=== PATIENT | male | born 1970 ===

== ENCOUNTER 2016-07-14 09:56 | Emergency (ER) | payer MEDICAID ==
[2016-07-14] MEDS ORDERED: ASPIRIN 81 MG CHEWABLE CTB PO ONE (10:03)
[2016-07-14] MEDS ORDERED: ASPIRIN 81 MG CHEWABLE CTB ONE (10:04)
[2016-07-14 10:08] VITALS: TEMP 97.9
[2016-07-14 10:35] LABS: HEMATOCRIT 46 % (39-53); MEAN CORPUSCULAR VOLUME 82 fL (80-100)
[2016-07-14 10:47] LABS: LYMPHOCYTES % (MANUAL) 13 % (10-50)
[2016-07-14 10:48] LABS: BASOPHILS % (MANUAL) 0 % (0-3); EOSINOPHILS % (MANUAL) 0 % (0-9); NORMAL RBCS PRESENT
[2016-07-14 10:49] LABS: ALBUMIN 3.5 gm/dl (3.4-5.0); ALT 54 IU/L (14-63); CALCIUM 8.7 mg/dl (8.5-10.1); GLOM FILT RATE 125 mL/min (>60); POTASSIUM 3.7 mMol/L (3.5-5.1); SODIUM 137 mMol/L (136-145)
[2016-07-14] MEDS ORDERED: ALBUTEROL/IPRATROPIUM 1 VIAL SOL INH ONE (11:41)
[2016-07-14] MEDS ORDERED: ALBUTEROL/IPRATROPIUM 1 VIAL SOL ONE (11:42)
[2016-07-14 11:45] VITALS: PULSE 100
[2016-07-14 12:22] VITALS: BP 109/73; RESP 24; O2SAT 98
== END 2016-07-14 12:04 | disposition home or self-care (01) | DRG 195 ==
LOC: ED 09:56
DX: J18.9 Pneumonia, unspecified organism (principal)
CPT/HCPCS: 36415; 71020; 80053; 84484; 85007; 85027; 85378; 87804; 93005; 99284; J7620